=== PATIENT | female | born 1965 | race Caucasian/White ===

== ENCOUNTER 2017-01-31 23:52 | Emergency (ER) | payer MEDICARE, MEDICAID ==
[~2017-01-31] VITALS: Ht 154.9 cm; Wt 104.3 kg
--- NOTE | 2017-02-01 00:46 | PHYS DOC ---
Past Medical History Past Medical History: Diabetes-Type I, Hypertension Adult General Chief Complaint Chief Complaint: CHEST PAIN HPI HPI Patient is a 51 year old female who presents with complaints of 5 left-sided chest pain that it radiates to her left arm. Patient denies any nausea, vomiting , diaphoresis, abdominal pain, neck pain, back pain. No history of trauma. Patient thinks he has some increasing swelling at her lower extremities, does not describe any pain in the extremities. She is currently a resident at the 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 Review of Systems Review of Systems Constitutional: Denies fever or chills [] HENT: Denies neck pain Respiratory: Denies cough or shortness of breath [] Cardiovascular: No additional information not addressed in HPI [] GI: Denies abdominal pain, nausea, vomiting, bloody stools or diarrhea [] Musculoskeletal: Denies back pain or joint pain [] Integument: Denies rash or skin lesions [] Neurologic: Denies headache, focal weakness or sensory changes [] Endocrine: Denies polyuria or polydipsia [] Current Medications Current Medications Current Medications Medications (Trade) Dose Ordered Sig/[facility] Start Time Stop Time Status Last Admin Dose Admin Acetaminophen (Tylenol) 500 mg 1X ONCE 02/01/17 02:00 02/01/17 02:01 DC 02/01/17 04:22 500 MG Sodium Chloride 250 ml @ 250 mls/hr 1X ONCE 02/01/17 01:00 02/01/17 01:59 DC 02/01/17 01:00 250 MLS/HR Allergies Allergies Allergies Coded Allergies Type Severity Reaction Last Updated Verified ketorolac Allergy Unknown Nausea and Vomiting 02/01/17 Yes lisinopril Allergy Unknown Nausea and Vomiting 02/01/17 Yes meperidine Allergy Unknown Nausea and Vomiting 02/01/17 Yes Physical Exam Physical Exam Constitutional: Well developed, well nourished, no acute distress, non-toxic appearance. [] HENT: Normocephalic, atraumatic, oropharynx dry, no oral exudates, nose normal. [] Eyes: EOMI, conjunctiva normal, no discharge. [] Neck: Normal range of motion, no tenderness, supple, no stridor. No JVD, no LAD Cardiovascular:Heart rate regular rhythm, no murmur, equal pulses, normal perfusion Lungs & Thorax: Bilateral breath sounds clear to auscultation, no tachypnea Abdomen: Bowel sounds normal, soft, no tenderness, no masses, no pulsatile masses. [] Skin: Warm, dry, no erythema, no rash. [] Back: No tenderness, no CVA tenderness. [] Extremities: No tenderness, no cyanosis, no DVT, ROM intact, no edema. [] Neurologic: Alert and oriented X 3, normal motor function, , no focal deficits noted. [] Psychologic: Affect normal, judgement normal, mood normal. [] Current Patient Data Vital Signs Vital Signs Date Time Temp Pulse Resp B/P (MAP) Pulse Ox O2 Delivery O2 Flow Rate FiO2 02/01/17 03:00 92 22 140/67 (91) 95 Room Air 01/31/17 23:56 98.1 98.1 Lab Values Laboratory Tests Test 02/01/17 01:31 02/01/17 04:53 02/01/17 05:01 White Blood Count 12.4 x10^3/uL (4.0-11.0) H Red Blood Count 3.94 x10^6/uL (3.50-5.40) Hemoglobin 11.3 g/dL (12.0-15.5) L Hematocrit 34.3 % (36.0-47.0) L Mean Corpuscular Volume 87 fL (79-100) Mean Corpuscular Hemoglobin 29 pg (25-35) Mean Corpuscular Hemoglobin Concent 33 g/dL (31-37) Red Cell Distribution Width 14.7 % (11.5-14.5) H Platelet Count 187 x10^3/uL (140-400) Neutrophils (%) (Auto) 66 % (31-73) Lymphocytes (%) (Auto) 28 % (24-48) Monocytes (%) (Auto) 4 % (0-9) Eosinophils (%) (Auto) 1 % (0-3) Basophils (%) (Auto) 1 % (0-3) Neutrophils # (Auto) 8.2 x10^3uL (1.8-7.7) H Lymphocytes # (Auto) 3.4 x10^3/uL (1.0-4.8) Monocytes # (Auto) 0.6 x10^3/uL (0.0-1.1) Eosinophils # (Auto) 0.1 x10^3/uL (0.0-0.7) Basophils # (Auto) 0.1 x10^3/uL (0.0-0.2) Sodium Level 140 mmol/L (136-145) Potassium Level 3.5 mmol/L (3.5-5.1) Chloride Level 104 mmol/L (98-107) Carbon Dioxide Level 28 mmol/L (21-32) Anion Gap 8 (6-14) 14 mmol/L (6-14) Blood Urea Nitrogen 16 mg/dL (7-20) Creatinine 0.6 mg/dL (0.6-1.0) Estimated GFR (Cockcroft-Gault) 105.8 Glucose Level 138 mg/dL (70-99) H 164 mg/dL (70-99) H Calcium Level 9.3 mg/dL (8.5-10.1) Troponin I Quantitative < 0.017 ng/mL (0.000-0.055) LC-Opn-W-Type Natriuretic Peptide 21 pg/mL (0-124) POC Hemoglobin 10.9 g/dL (12-15) L POC Hematocrit 32 % (36-40) L POC Sodium 139 mmol/L (135-145) POC Potassium 4.1 mmol/L (3.5-5.0) POC Chloride 105 mmol/L (98-110) POC Total CO2 25 mmol/L (23-32) POC Blood Urea Nitrogen 14 mg/dL (8-26) POC Creatinine 0.5 mg/dL (0.5-1.4) POC Ionized Calcium ([place]) 1.08 mmol/L (1.13-1.32) L POC Troponin I 0.00 ng/ml (<0.08) Laboratory Tests 02/01/17 01:31 Laboratory Tests 02/01/17 01:31 02/01/17 04:53 EKG EKG 2358 sinus rhythm, 86, no STEMI[] 0412 sinus rhythm, 96, no STEMI Radiology/Procedures Radiology/Procedures [] Course & Med Decision Making Course & Med Decision Making Pertinent Labs and Imaging studies reviewed. (See chart for details) 0302 patient resting comfortably in no distress, vital signs are unremarkable. I discussed the imaging and the last with the patient, I told the patient that my plan was to admit her for telemetry monitoring and rule out ACS. Patient states she doesn't want to stay, she does not want to be admitted she wishes to leave AMA. I negotiated with the patient and she agrees to stay for at least another hour and then repeat another EKG and another troponin and then make a decision at that time. 0358 pt in nad. Pt still wishes to leave AMA, risks (including but not limited to , heart attack or permanent disability) were discussed with the patient who voiced understanding and repeat it them back to me. Questions were sought and answered. patient was not under duress when having the discussion and pt displayed medical decision capacity. pt aware that she is welcome to change her mind at any time and return to the ED for admission. Pt understands and states she will do so. 0516 pt still wishes to leave AMA. istat troponin negative [] Dragon Disclaimer Dragon Disclaimer This electronic medical record was generated, in whole or in part, using a voice recognition dictation system. Departure Departure Impression: Primary Impression: Chest pain Disposition: 07 AGAINST MEDICAL ADVICE Condition: STABLE Referrals: NO PCP (PCP) please follow up with your pcp today or follow up at one of the clinics in the list provided to you Patient Instructions: Chest Pain (Nonspecific), Discharge Against Medical Advice Zully ARGUETA MD Feb 01, 2017 00:46
[2017-02-01] MEDS ORDERED: IV NORMAL SALINE 250ML 250 ML IV ONE (01:00)
[2017-02-01] MEDS ORDERED: METO50TA2 PO (01:04)
[2017-02-01] MEDS ORDERED: LAMO100T5 PO (01:04)
[2017-02-01 01:34] LABS: BASO # 0.1 x10^3/uL (0.0-0.2); BASO % 1 % (0-3); EOS % 1 % (0-3); HEMATOCRIT 34.3 % (36.0-47.0); HEMOGLOBIN 11.3 g/dL (12.0-15.5); LYMPH # 3.4 x10^3/uL (1.0-4.8); LYMPH % 28 % (24-48); MEAN CORPUSCULAR HEMOGLOBIN 29 pg (25-35); MEAN CORPUSCULAR HGB CONC 33 g/dL (31-37); MEAN CORPUSCULAR VOLUME 87 fL (79-100); MONO % 4 % (0-9); NEUT % 66 % (31-73); PLATELET COUNT 187 x10^3/uL (140-400); RED BLOOD COUNT 3.94 x10^6/uL (3.50-5.40); RED CELL DISTRIBUTION WIDTH 14.7 % (11.5-14.5); WHITE BLOOD COUNT 12.4 x10^3/uL (4.0-11.0)
[2017-02-01 01:43] LABS: CALCIUM 9.3 mg/dL (8.5-10.1); CREATININE 0.6 mg/dL (0.6-1.0); GFR 105.8; POTASSIUM 3.5 mmol/L (3.5-5.1)
[2017-02-01] MEDS ORDERED: ACETAMINOPHEN 500 MG TABLET PO ONE (02:00)
[2017-02-01 03:00] VITALS: BP 140/67
[2017-02-01 05:00] LABS: POTASSIUM ISTAT 4.1 mmol/L (3.5-5.0)
--- NOTE | 2017-02-01 07:10 | EKG ---
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
--- NOTE | 2017-02-01 07:15 | RAD ---
Chest x-ray Indication: Chest pain Technique: Portable AP upright chest x-ray Comparison: None Findings: Patient is slightly rotated to the right. Heart is normal in size. Lobulated radiopacities seen overlying lateral aspect of the left fifth rib. Otherwise, lungs are clear. No pneumothorax or pleural effusion. Visualized bony thorax within normal limits. Impression: No acute cardiopulmonary process. Small opacity overlying the lateral aspect of the left fifth with may be an artifact from overlying EKG or pulmonary nodule. Repeat chest x-ray without EKG leads recommended. Findings discussed with Dr. Horn (ER physician) on 02/01/2017 at 7:12 AM.
--- NOTE | 2017-02-01 07:28 | EKG ---
[facility] [address] [place] [address] Test Date: 2017-02-01 Test Time: 04:11:44 Pat Name: ANJALI HERMOSILLO Department: Room: Gender: F Director Of Contracts: : 1965 Requested By: Zully ARGUETA Order Number: [id number] Reading MD: Measurements Intervals [place] Rate: 96 P: 39 [place]: 170 QRS: 31 QRSD: 90 T: -12 QT: 364 QTc: 461 Interpretive Statements SINUS RHYTHM LEFT ATRIAL ABNORMALITY T ABNORMALITY IN INFERIOR LEADS RI6.01 Unconfirmed report No previous ECG available for comparison
== END 2017-02-01 05:32 | disposition left against medical advice (07) ==
LOC: ER 23:52
DX: R07.89 Other chest pain (principal); E10.9 Type 1 diabetes mellitus without complications; I10 Essential (primary) hypertension; Z88.6 Allergy status to analgesic agent; Z88.8 Allergy status to other drugs, medicaments and biological substances
CPT/HCPCS: 36415; 71010; 80047; 80048; 83880; 84484; 85025; 93005; 96360; 96361; 99285; J7050; J7030